=== PATIENT | female | born 1970 | race Caucasian/White ===

== ENCOUNTER 2021-11-07 14:38 | Emergency (ER) | payer OTHER ==
[~2021-11-07] VITALS: Ht 162.6 cm; Wt 87.1 kg
[2021-11-07 14:50] VITALS: BP 133/85
--- NOTE | 2021-11-07 14:54 | NUR ---
PT TO AWAIT IN TENT
[2021-11-07] MEDS ORDERED: ONDA-188 SL (17:23)
[2021-11-07] MEDS ORDERED: PRED20TA5 PO (17:24)
--- NOTE | 2021-11-07 17:54 | NUR ---
FLU AND NOVEL SWABBED, HANDED TO DIAMANTE SULLIVAN
[2021-11-07 18:10] VITALS: BP 133/85
--- NOTE | 2021-11-07 18:10 | NUR ---
Note dhavalone in EDM - 11/07/21 at 1814 by [email or web address] Patient left without d/c paperwork. Patient discharged with v/s stable. Ambulatory with steady gait. All questions addressed prior to discharge. ID band removed. Patient advised to follow up with PMD. Rx of PREDNISONE AND ZOFRAN given. Patient educated on indication of medication including possible reaction and side effects. Opportunity to ask questions provided and answered.
--- NOTE | 2021-11-07 18:10 | NUR ---
Patient discharged with v/s stable. Written and verbal after care instructions given and explained. Patient alert, oriented and verbalized understanding of instructions. Ambulatory with steady gait. All questions addressed prior to discharge. ID band removed. Patient advised to follow up with PMD. Rx of ZOFRAN AND DELTASONE given. Patient educated on indication of medication including possible reaction and side effects. Opportunity to ask questions provided and answered.
== END 2021-11-07 18:10 | disposition home or self-care (01) ==
LOC: MED 14:38
DX: R50.9 Fever, unspecified (principal); Z11.52 Encounter for screening for COVID-19; Z79.899 Other long term (current) drug therapy
CPT/HCPCS: 87804; 99283; U0003